=== PATIENT | female | born 1980 | race Caucasian/White ===

== ENCOUNTER 2018-05-26 11:52 | Day surgery (SDC) | payer OTHER ==
[2018-05-26] MEDS ORDERED: PROPOFOL 20 ML (13:39)
[2018-05-26] MEDS ORDERED: MIDAZOLAM 1 MG/ML 2 ML INJ (13:40)
== END 2018-05-26 16:02 | disposition home or self-care (01) ==
LOC: GIL 11:52
DX: K29.70 Gastritis, unspecified, without bleeding (principal)
CPT/HCPCS: 43239; 84703; 88305; 88312